=== PATIENT | male | born 1995 | race Caucasian/White ===

== ENCOUNTER 2024-08-17 19:12 | Inpatient (IN) | payer OTHER ==
[2024-08-17 19:53] VITALS: BMI 21.4
[2024-08-18] MEDS ORDERED: ACETAMINOPHEN 325 MG TABLET (FP) PO PRN (06:19)
[2024-08-18] MEDS ORDERED: NICOTINE POLACRILEX 2 MG GUM BUC PRN (06:19)
[2024-08-18] MEDS ORDERED: IBUPROFEN 400 MG TABLET (FP) PO PRN (06:19)
[2024-08-18] MEDS ORDERED: MAG HYDROX/AL HYDROX/SIMETH 30 ML UNIT-DOSE CUP PO PRN (06:19)
[2024-08-18] MEDS ORDERED: NALOXONE (NARCAN) HCL 4 MG/0.1 ML SPRAY NS PRN (06:19)
[2024-08-18] MEDS ORDERED: MAGNESIUM HYDROX 2400MG/30ML ORAL SUSPENSION 30 ML CUP PO PRN (06:19)
[2024-08-18] MEDS ORDERED: BENZOCAINE/MENTHOL (CHLORASEPTIC ) LOZENGE MM PRN (06:19)
[2024-08-18] MEDS ORDERED: ONDANSETRON *ODT* 4 MG TABLET SL PRN (06:19)
[2024-08-18] MEDS ORDERED: BENZONATATE 200 MG CAPSULE PO PRN (06:19)
[2024-08-18] MEDS ORDERED: BISMUTH SUBSALICYLATE 262 MG/15 ML BTL PO PRN (06:19)
[2024-08-18] MEDS ORDERED: LOPERAMIDE HCL 2 MG CAPSULE PO PRN (06:19)
[2024-08-18] MEDS ORDERED: IBUPROFEN 600 MG TABLET (FP) PO PRN (06:19)
[2024-08-18] MEDS ORDERED: POLYETHYLENE GLYCOL (HEALTHYLAX) 3350 17 GM PACKET PO PRN (06:19)
[2024-08-18] MEDS: methaDONE HCL 10 MG TABLET (FOR DETOX USE ONLY) PO ONE (07:49)
[2024-08-18] MEDS: cloNIDine HCL 0.1 MG TABLET PO PRN (07:53)
[2024-08-18] MEDS: PRENATAL VITAMINS W/ FOLIC ACID TABLET (FP) PO SCH (10:44)
[2024-08-18] MEDS: NICOTINE 14 MG/24 HOURS TOPICAL PATCH TD SCH (10:45)
[2024-08-18] MEDS: METHOCARBAMOL 500 MG TABLET PO PRN (17:14)
[2024-08-18] MEDS: hydrOXYzine PAMOATE 25 MG CAPSULE (FP) PO PRN (17:14)
[2024-08-18] MEDS: diazePAM 5 MG TABLET PO PRN (18:56)
[2024-08-18] MEDS: DICYCLOMINE HCL 10 MG CAPSULE PO PRN (18:56)
[2024-08-18] MEDS: MELATONIN 5 MG TABLETS PO SCH (23:10)
[2024-08-18] MEDS: THIAMINE 100 MG TABLET PO SCH (23:10)
[2024-08-19 12:44] LABS: HEMATOCRIT 45.2 % (35.4-49); MCH 28.8 pg (25.7-33.7); MCHC 33.2 g/dl (32.0-35.9); MEAN CELL VOLUME 86.8 fl (80-96); MEAN PLT VOLUME 7.4 fl (7.5-11.1); PLATELET COUNT 302 10^3/uL (134-434); RBC 5.21 M/mm3 (4.00-5.60); RDW 13.8 % (11.9-15.9); WHITE BLOOD COUNT 5.7 K/mm3 (4.0-10.0)
[2024-08-19 13:48] LABS: POTASSIUM 4.4 mmol/L (3.5-5.1)
[2024-08-19 13:51] LABS: CALCIUM 9.9 mg/dL (8.5-10.1)
[2024-08-19 13:52] LABS: BLOOD UREA NITROGEN 8.2 mg/dL (7-18)
[2024-08-19 13:56] LABS: CREATININE 0.7 mg/dL (0.55-1.3)
[2024-08-19 13:57] LABS: TOT PROT 7.3 g/dl (6.4-8.2)
[2024-08-20] MEDS: ALBUTEROL SO4 HFA INHALER IH PRN (02:52)
[2024-08-20] MEDS: P-EPHED 60MG/TRIPROLIDI 2.5MG TABLET PO PRN (02:54)
[2024-08-20] MEDS: guaiFENesin 600 MG TABLET.ER (FP) PO PRN (02:56)
[2024-08-20] MEDS ORDERED: methaDONE HCL 10 MG TABLET (FOR DETOX USE ONLY) PO ONE (10:00)
[2024-08-21] MEDS: methaDONE HCL 10 MG TABLET (FOR DETOX USE ONLY) PO ONE (10:05)
[2024-08-21] MEDS: NALOXONE (NYS OPIOID OVERDOSE PROGRAM) 4 MG/0.1 ML SPRAY NS PRN (12:39)
[2024-08-21 12:58] VITALS: BP 110/66; PULSE 79; RESP 18; TEMP 96.9
[2024-08-22] MEDS ORDERED: methaDONE HCL 10 MG TABLET (FOR DETOX USE ONLY) PO ONE (10:00)
== END 2024-08-21 12:48 | disposition home or self-care (01) | DRG 773 ==
LOC: YASAS 19:12 → Y3N 08-18 07:00
PROVIDERS: ADMIT Allergy & Immunology; ATTEND Surgery
PROC: HZ2ZZZZ Detoxification Services for Substance Abuse Treatment (ICD-10-PCS; principal; 2024-08-18)
DX: F11.23 Opioid dependence with withdrawal (principal); F14.20 Cocaine dependence, uncomplicated; F12.20 Cannabis dependence, uncomplicated; F17.210 Nicotine dependence, cigarettes, uncomplicated; F31.9 Bipolar disorder, unspecified; J45.909 Unspecified asthma, uncomplicated
CPT/HCPCS: 36415; 80053; 80305; 80307; 85027; 86780; 93005; 93010

== ENCOUNTER 2024-09-09 12:44 | Inpatient (IN) | payer OTHER ==
[2024-09-09 13:15] VITALS: BMI 23.1
[2024-09-09] MEDS ORDERED: ACETAMINOPHEN 325 MG TABLET (FP) PO PRN (14:18)
[2024-09-09] MEDS ORDERED: BISMUTH SUBSALICYLATE 262 MG/15 ML BTL PO PRN (14:18)
[2024-09-09] MEDS ORDERED: MAG HYDROX/AL HYDROX/SIMETH 30 ML UNIT-DOSE CUP PO PRN (14:18)
[2024-09-09] MEDS ORDERED: NALOXONE (NYS OPIOID OVERDOSE PROGRAM) 4 MG/0.1 ML SPRAY NS PRN (14:18)
[2024-09-09] MEDS ORDERED: NICOTINE POLACRILEX 2 MG LOZENGE BC PRN (14:18)
[2024-09-09] MEDS ORDERED: BENZOCAINE/MENTHOL (CHLORASEPTIC ) LOZENGE MM PRN (14:18)
[2024-09-09] MEDS ORDERED: P-EPHED 60MG/TRIPROLIDI 2.5MG TABLET PO PRN (14:18)
[2024-09-09] MEDS ORDERED: IBUPROFEN 600 MG TABLET (FP) PO PRN (14:18)
[2024-09-09] MEDS ORDERED: LOPERAMIDE HCL 2 MG CAPSULE PO PRN (14:18)
[2024-09-09] MEDS ORDERED: hydrOXYzine PAMOATE 25 MG CAPSULE (FP) PO PRN (14:18)
[2024-09-09] MEDS ORDERED: ALBUTEROL SO4 HFA INHALER IH PRN (14:18)
[2024-09-09] MEDS ORDERED: guaiFENesin 600 MG TABLET.ER (FP) PO PRN (14:18)
[2024-09-09] MEDS ORDERED: BENZONATATE 200 MG CAPSULE PO PRN (14:18)
[2024-09-09] MEDS ORDERED: DICYCLOMINE HCL 10 MG CAPSULE PO PRN (14:18)
[2024-09-09] MEDS ORDERED: IBUPROFEN 400 MG TABLET (FP) PO PRN (14:18)
[2024-09-09] MEDS ORDERED: ONDANSETRON *ODT* 4 MG TABLET SL PRN (14:18)
[2024-09-09] MEDS ORDERED: NALOXONE (NARCAN) HCL 4 MG/0.1 ML SPRAY NS PRN (14:18)
[2024-09-09] MEDS ORDERED: POLYETHYLENE GLYCOL (HEALTHYLAX) 3350 17 GM PACKET PO PRN (14:18)
[2024-09-09] MEDS ORDERED: MAGNESIUM HYDROX 2400MG/30ML ORAL SUSPENSION 30 ML CUP PO PRN (14:18)
[2024-09-09] MEDS: methaDONE HCL 10 MG TABLET (FOR DETOX USE ONLY) PO ONE (15:36)
[2024-09-09] MEDS: methaDONE HCL 10 MG TABLET PO ONE (17:54)
[2024-09-09] MEDS: MELATONIN 5 MG TABLETS PO SCH (23:18)
[2024-09-09] MEDS: THIAMINE 100 MG TABLET PO SCH (23:18)
[2024-09-10] MEDS: PRENATAL VITAMINS W/ FOLIC ACID TABLET (FP) PO SCH (09:15)
[2024-09-10] MEDS: diazePAM 5 MG TABLET PO PRN (10:58)
[2024-09-10] MEDS: METHOCARBAMOL 500 MG TABLET PO PRN (22:44)
[2024-09-11] MEDS: cloNIDine HCL 0.1 MG TABLET PO PRN (09:09)
[2024-09-11] MEDS: methaDONE HCL 10 MG TABLET (FOR DETOX USE ONLY) PO ONE (09:09)
[2024-09-12] MEDS ORDERED: methaDONE HCL 10 MG TABLET PO ONE (11:24)
[2024-09-12] MEDS: methaDONE HCL 10 MG TABLET PO ONE (12:15)
[2024-09-12] MEDS: NICOTINE POLACRILEX 2 MG GUM BUC PRN (21:05)
[2024-09-13] MEDS ORDERED: methaDONE 40 MG, methaDONE 10 MG PO ONE (10:00)
[2024-09-13] MEDS ORDERED: methaDONE HCL 10 MG TABLET (FOR DETOX USE ONLY) PO ONE (10:00)
[2024-09-13] MEDS ORDERED: methaDONE HCL 10 MG TABLET PO ONE (10:00)
[2024-09-13] MEDS: methaDONE HCL 40 MG DISPERSABLE TABLET PO SCH (10:33)
[2024-09-13 10:40] LABS: HEMOGLOBIN 13.7 GM/dL (11.7-16.9); MCH 29.4 pg (25.7-33.7); MCHC 34.2 g/dl (32.0-35.9); MEAN CELL VOLUME 85.9 fl (80-96); MEAN PLT VOLUME 7.3 fl (7.5-11.1); PLATELET COUNT 256 10^3/uL (134-434); RBC 4.66 M/mm3 (4.00-5.60); RDW 13.4 % (11.9-15.9); WHITE BLOOD COUNT 5.3 K/mm3 (4.0-10.0)
[2024-09-13 11:03] LABS: POTASSIUM 4.3 mmol/L (3.5-5.1)
[2024-09-13 11:15] LABS: CALCIUM 9.4 mg/dL (8.5-10.1)
[2024-09-13 11:16] LABS: ALBUMIN 3.7 g/dl (3.4-5.0); BLOOD UREA NITROGEN 10.7 mg/dL (7-18)
[2024-09-13 11:19] LABS: CREATININE 0.8 mg/dL (0.55-1.3)
[2024-09-13 11:20] LABS: BILIRUBIN,TOTAL 0.9 mg/dL (0.2-1); TOT PROT 6.8 g/dl (6.4-8.2)
[2024-09-13] MEDS: NICOTINE 21 MG/24 HOURS TOPICAL PATCH TD SCH (14:15)
[2024-09-14] MEDS ORDERED: methaDONE 40 MG, methaDONE 20 MG PO ONE (10:00)
[2024-09-14] MEDS ORDERED: methaDONE HCL 10 MG TABLET PO ONE (10:00)
[2024-09-14 21:14] VITALS: RESP 16
[2024-09-15 09:11] VITALS: BP 126/76; PULSE 83; TEMP 97.1
[2024-09-15] MEDS ORDERED: methaDONE HCL 10 MG TABLET PO ONE (10:00)
[2024-09-15] MEDS ORDERED: methaDONE 40 MG, methaDONE 30 MG PO ONE (10:00)
== END 2024-09-15 12:13 | disposition home or self-care (01) | DRG 773 ==
LOC: YASAS 12:44 → Y6N 15:03
PROVIDERS: ADMIT Allergy & Immunology; ATTEND Surgery
PROC: HZ2ZZZZ Detoxification Services for Substance Abuse Treatment (ICD-10-PCS; principal; 2024-09-09)
DX: F11.23 Opioid dependence with withdrawal (principal); F14.20 Cocaine dependence, uncomplicated; F12.20 Cannabis dependence, uncomplicated; F17.210 Nicotine dependence, cigarettes, uncomplicated; F31.9 Bipolar disorder, unspecified; F41.9 Anxiety disorder, unspecified; J45.20 Mild intermittent asthma, uncomplicated; Z59.02 Unsheltered homelessness
CPT/HCPCS: 36415; 80053; 80305; 80307; 85027; 86780